=== PATIENT | female | born 1995 | race Caucasian/White ===

== ENCOUNTER 2018-07-28 06:19 | Day surgery (SDC) | payer MEDICAID ==
[~2018-07-28] VITALS: Ht 160 cm; Wt 90.7 kg
[~2018-07-28 06:19] MED LIST: LEVO1TAB PO
[2018-07-28 07:06] LABS: UCG SCREEN NEGATIVE
[2018-07-28] MEDS ORDERED: SKIN ADHESIVE 0.7 GM EA TOP ONE (07:08)
[2018-07-28] MEDS ORDERED: BUPIVACAINE HCL 0.5% (5MG/ML) 50ML ONE (07:09)
[2018-07-28] MEDS ORDERED: MIDAZOLAM HCL 2 MG/2 ML VIAL ONE (08:41)
[2018-07-28] MEDS ORDERED: ROCURONIUM BROMIDE 10MG/ML VIAL 5ML IV ONE (08:41)
[2018-07-28] MEDS ORDERED: PROPOFOL 200MG/20ML VIAL IV ONE (08:41)
[2018-07-28] MEDS ORDERED: NEOSTIGMINE METHYLSULFATE 1MG/ML 10 ML VIAL ONE (08:41)
[2018-07-28] MEDS ORDERED: FENTANYL CITRATE/PF 50MCG/ML 2ML VIAL ONE (08:41)
[2018-07-28] MEDS ORDERED: GLYCOPYRROLATE 0.2 MG/ML 2ML VIAL ONE (08:41)
[2018-07-28] MEDS ORDERED: LIDOCAINE HCL/PF 1% 10 MG/ML 5ML VIAL ONE (08:42)
[2018-07-28] MEDS ORDERED: SODIUM CHLORIDE 0.9% 10ML VIAL ONE (08:42)
[2018-07-28] MEDS ORDERED: SUCCINYLCHOLINE CHLORIDE 200MG/10ML IV ONE (08:42)
[2018-07-28] MEDS ORDERED: METOCLOPRAMIDE HCL 10MG/2ML VIAL ONE (08:42)
[2018-07-28] MEDS ORDERED: ONDANSETRON HCL 4MG/2ML INJ ONE (08:42)
[2018-07-28] MEDS ORDERED: CEFAZOLIN SODIUM 1000MG/VIAL ONE (08:42)
[2018-07-28] MEDS ORDERED: SODIUM CHLORIDE 0.9% 1,000 ML IV ONE (09:12)
[2018-07-28] MEDS ORDERED: HYDROMORPHONE HCL/PF 2MG/ML CPJ IV PRN (09:15)
[2018-07-28] MEDS ORDERED: ONDANSETRON HCL 4MG/2ML INJ IV PRN (09:15)
[2018-07-28] MEDS ORDERED: MEPERIDINE HCL/PF 25MG/ML CPJ IV PRN ×2 (09:15)
[2018-07-28 10:13] VITALS: BP 145/94
== END 2018-07-28 11:30 | disposition home or self-care (01) ==
LOC: OR 06:19
PROVIDERS: ATTEND Surgery
DX: K80.10 Calculus of gallbladder with chronic cholecystitis without obstruction (principal); Z91.018 Allergy to other foods
CPT/HCPCS: 47562; 81025; 88304; A4216; G0168; J0330; J0690; J2175; J2250; J2405; J2710; J2765; J3010; J3490; J7030; J7120; J2704